=== PATIENT | male | born 1955 | race Caucasian/White ===

== ENCOUNTER 2017-03-25 22:44 | Observation (INO) | payer OTHER ==
[2017-03-26] MEDS: ASPIRIN 325 MG TAB PO (02:07)
[2017-03-26] MEDS: NITROGLYCERIN 2% 1 GM OINT PKT TD (02:08)
[2017-03-26 02:38] LABS: ADD MAN DIFF? NO
[2017-03-26 02:45] LABS: BASOPHIL # 0.1 10^3/ul (0.0-0.1); BASOPHILS % 0.8 % (0.0-2.0); EOSINOPHILS # 0.3 10^3/ul (0.0-0.5); EOSINOPHILS % 3.6 % (0.0-7.0); HEMATOCRIT 37.8 % (42.0-52.0); HEMOGLOBIN 12.9 g/dl (14.0-18.0); LYMPHOCYTES % 44.8 % (15.0-51.0); MEAN CORPUSCULAR HEMOGLOBIN 31.4 pg (29.0-33.0); MEAN CORPUSCULAR HGB CONC 34.1 g/dl (32.0-37.0); MEAN PLATELET VOLUME 11.1 fl (7.4-10.4); MONOCYTES % 10.8 % (0.0-11.0); NEUTROPHIL # 3.5 10^3/ul (1.6-7.5); NEUTROPHILS % 39.8 % (39.0-77.0); PLATELET COUNT 282 10^3/UL (140-415); RED BLOOD COUNT 4.11 10^6/ul (4.70-6.10); RED CELL DISTRIBUTION WIDTH 12.8 % (11.5-14.5)
[2017-03-26 02:45] LABS: WHITE BLOOD COUNT 8.8 10^3/ul (4.8-10.8)
[2017-03-26 03:02] LABS: ANION GAP 19 (8-16); BLOOD UREA NITROGEN 28 mg/dl (7-20); CALCIUM 9.8 mg/dl (8.4-10.2); CARBON DIOXIDE 24 mmol/L (21-31); CHLORIDE 102 mmol/L (97-110); CREATININE 1.45 mg/dl (0.61-1.24); GLUCOSE 215 mg/dl (70-220); SODIUM 140 mmol/L (135-144)
[2017-03-26 03:15] LABS: TROPONIN-I 0.019 ng/ml (0.00-0.12)
[2017-03-26] MEDS ORDERED: NITROGLYCERIN (SL) 0.4 MG TAB SL (03:30)
[2017-03-26] MEDS ORDERED: ACETAMINOPHEN 325 MG TAB PO (03:30)
[2017-03-26] MEDS ORDERED: ONDANSETRON 4 MG INJ IV (03:30)
[2017-03-26] MEDS ORDERED: BISACODYL (EC) 5 MG TAB PO (03:30)
[2017-03-26] MEDS ORDERED: DOCUSATE SODIUM 100 MG CAP PO (03:30)
[2017-03-26] MEDS ORDERED: NACL 0.9% 3 ML SYG IV (03:30)
[2017-03-26 03:40] LABS: D-DIMER 263.62 ng/ml (<460)
[2017-03-26] MEDS: morphine 2 MG INJ IV (05:20)
[2017-03-26] MEDS ORDERED: ASPIRIN (EC) 81 MG TAB PO (09:00)
[2017-03-26 09:28] LABS: CREATINE KINASE 65 IU/L (23-200)
[2017-03-26 09:35] LABS: CK INDEX 0.7
[2017-03-26 09:44] LABS: CK-MB 0.44 ng/ml (0.0-2.4); TROPONIN-I < 0.012 ng/ml (0.00-0.12)
[2017-03-26 09:45] LABS: MAGNESIUM 1.7 mg/dl (1.7-2.5)
[2017-03-26 09:45] LABS: CHOL/HDL RATIO 6.6 RATIO; CHOLESTEROL 251 mg/dl (100-200); HDL CHOLESTEROL 38 mg/dl (30-78); LDL CHOLESTEROL,CALCULATED 194 mg/dl; TRIGLYCERIDES 93 mg/dl (0-149)
[2017-03-26 09:49] LABS: HEMOGLOBIN A1C 8.2 % (0-5.9)
[2017-03-26] MEDS ORDERED: GLUCOSE GEL 15 GRAM TUBE PO ×2 (11:00)
[2017-03-26] MEDS ORDERED: DEXTROSE 50% 50 ML SYRINGE IV ×2 (11:00)
[2017-03-26] MEDS ORDERED: GLUCOSE GEL 15 GRAM TUBE BUCCAL (11:00)
[2017-03-26] MEDS ORDERED: GLUCAGON 1 MG INJ IM (11:00)
[2017-03-26] MEDS: GEMFIBROZIL 600 MG TAB PO ×2 (12:14→20:27)
[2017-03-26] MEDS: METOPROLOL 25 MG TAB PO ×2 (12:14→20:27)
[2017-03-26] MEDS: INSULIN GLARGINE [LANtus] 3 ML PEN SC (12:45)
[2017-03-26] MEDS: INSULIN ASPART [NOVOLOG] 3 ML PEN SC ×3 (12:45→20:43)
[2017-03-26 14:44] LABS: CREATINE KINASE 64 IU/L (23-200)
[2017-03-26 14:53] LABS: CK INDEX 0.7
[2017-03-26 14:55] LABS: CK-MB 0.47 ng/ml (0.0-2.4); TROPONIN-I < 0.012 ng/ml (0.00-0.12)
[2017-03-26] MEDS: ATORVASTATIN 10 MG TAB PO (20:27)
[2017-03-26] MEDS: AL HYDROX/MG HYDROX/SIMETH 30 ML CUP PO (20:35)
[2017-03-27] MEDS: ACCU-CHEK XX (02:39)
[2017-03-27 06:17] LABS: ADD MAN DIFF? NO
[2017-03-27 06:21] LABS: WHITE BLOOD COUNT 6.8 10^3/ul (4.8-10.8)
[2017-03-27 06:21] LABS: BASOPHIL # 0.1 10^3/ul (0.0-0.1); BASOPHILS % 1.2 % (0.0-2.0); EOSINOPHILS # 0.3 10^3/ul (0.0-0.5); EOSINOPHILS % 4.3 % (0.0-7.0); HEMOGLOBIN 13.8 g/dl (14.0-18.0); LYMPHOCYTES # 2.9 10^3/ul (0.8-2.9); LYMPHOCYTES % 43.1 % (15.0-51.0); MEAN CORPUSCULAR HEMOGLOBIN 31.5 pg (29.0-33.0); MEAN CORPUSCULAR HGB CONC 34.5 g/dl (32.0-37.0); MEAN CORPUSCULAR VOLUME 91.3 fl (82.0-101.0); MEAN PLATELET VOLUME 10.6 fl (7.4-10.4); MONOCYTE # 0.9 10^3/ul (0.3-0.9); MONOCYTES % 12.7 % (0.0-11.0); NEUTROPHIL # 2.6 10^3/ul (1.6-7.5); NEUTROPHILS % 38.4 % (39.0-77.0); PLATELET COUNT 299 10^3/UL (140-415); RED BLOOD COUNT 4.38 10^6/ul (4.70-6.10); RED CELL DISTRIBUTION WIDTH 12.4 % (11.5-14.5)
[2017-03-27 06:55] LABS: ALANINE AMINOTRANSFERASE 63 IU/L (13-69); ALBUMIN 4.8 g/dl (3.3-4.9); ALBUMIN/GLOBULIN RATIO 1.17; ALKALINE PHOSPHATASE 73 IU/L (42-121); ANION GAP 15 (8-16); ASPARTATE AMINO TRANSFERASE 60 IU/L (15-46); BILIRUBIN,INDIRECT 0.3 mg/dl (0-1.1); BILIRUBIN,TOTAL 0.3 mg/dl (0.2-1.3); BLOOD UREA NITROGEN 24 mg/dl (7-20); CALCIUM 10.1 mg/dl (8.4-10.2); CARBON DIOXIDE 30 mmol/L (21-31); CHLORIDE 99 mmol/L (97-110); CREATININE 1.36 mg/dl (0.61-1.24); GLUCOSE 225 mg/dl (70-220); POTASSIUM 4.2 mmol/L (3.5-5.1); SODIUM 140 mmol/L (135-144); TOTAL PROTEIN 8.9 g/dl (6.1-8.1)
[2017-03-27] MEDS: GEMFIBROZIL 600 MG TAB PO ×2 (08:36→20:50)
[2017-03-27] MEDS: ASPIRIN (EC) 81 MG TAB PO (08:36)
[2017-03-27] MEDS: METOPROLOL 25 MG TAB PO ×2 (08:36→20:58)
[2017-03-27] MEDS: INSULIN GLARGINE [LANtus] 3 ML PEN SC (08:45)
[2017-03-27] MEDS: INSULIN ASPART [NOVOLOG] 3 ML PEN SC ×4 (08:46→20:50)
[2017-03-27] MEDS ORDERED: BENAZEPRIL 10 MG TAB PO (09:00)
[2017-03-27] MEDS: LINAGLIPTIN 5 MG TABLET PO (15:18)
[2017-03-27] MEDS: REPAGLINIDE 1 MG TAB PO (17:12)
[2017-03-27] MEDS: metFORMIN 500 MG TAB PO (17:19)
[2017-03-27] MEDS: ATORVASTATIN 10 MG TAB PO (20:50)
[2017-03-28] MEDS: ACCU-CHEK XX (02:00)
[2017-03-28] MEDS: LINAGLIPTIN 5 MG TABLET PO (08:22)
[2017-03-28] MEDS: ASPIRIN (EC) 81 MG TAB PO (08:22)
[2017-03-28] MEDS: REPAGLINIDE 1 MG TAB PO (08:22)
[2017-03-28] MEDS: GEMFIBROZIL 600 MG TAB PO (08:22)
[2017-03-28] MEDS: LOSARTAN 50 MG TAB PO (08:23)
[2017-03-28] MEDS: METOPROLOL 25 MG TAB PO (08:24)
[2017-03-28] MEDS: INSULIN ASPART [NOVOLOG] 3 ML PEN SC (08:28)
[2017-03-28] MEDS ORDERED: REPAGLINIDE 1 MG TAB PO (11:30)
== END 2017-03-28 11:20 | disposition home or self-care (01) ==
LOC: FTE 22:44 → MS4 03-26 03:26
DX: R07.89 Other chest pain (principal); E78.2 Mixed hyperlipidemia; I12.9 Hypertensive chronic kidney disease with stage 1 through stage 4 chronic kidney disease, or unspecified chronic kidney disease; E11.22 Type 2 diabetes mellitus with diabetic chronic kidney disease; N18.1 Chronic kidney disease, stage 1; E66.3 Overweight; Z68.29 Body mass index [BMI] 29.0-29.9, adult; D64.9 Anemia, unspecified
CPT/HCPCS: 36415; 71045; 80048; 80053; 80061; 82550; 82553; 82962; 83036; 83735; 84443; 84484; 85025; 85378; 93005; 93306; 93970; 96374; 99285-25; G0378

== ENCOUNTER 2017-04-01 15:40 | Outpatient (CLI) | payer OTHER | END 2017-04-01 17:00 | disposition home or self-care (01) | LOC: DCC 15:40 | DX: R07.9 Chest pain, unspecified (principal); E11.9 Type 2 diabetes mellitus without complications; I10 Essential (primary) hypertension; E78.5 Hyperlipidemia, unspecified; N28.9 Disorder of kidney and ureter, unspecified | CPT/HCPCS: G0463 ==

== ENCOUNTER 2017-04-20 13:56 | Outpatient (CLI) | payer OTHER | END 2017-04-20 17:00 | disposition home or self-care (01) | LOC: DCC 13:56 | DX: I10 Essential (primary) hypertension (principal); E11.9 Type 2 diabetes mellitus without complications; E78.5 Hyperlipidemia, unspecified; N28.9 Disorder of kidney and ureter, unspecified | CPT/HCPCS: G0463 ==